=== PATIENT | female | born 1955 | race Caucasian/White ===

== ENCOUNTER → 2016-09-14 | Outpatient (CLI) | payer OTHER ==
[2016-09-14 14:06] LABS: EKG EKG PERFORMED
[2016-09-14 14:22] LABS: Basophils % (A) 1 %; CH 32.4; CHCM 34.6; Eosinophils # (A) 0.1 k/uL (0-0.7); Eosinophils % (A) 2 %; HCT 37.5 % (34.0-46.0); HDW 2.98; HGB 12.3 gm/dL (11.4-16.0); Luc # (Auto) 0.08; Luc % (Auto) 2; Lymphocytes # (A) 1.9 k/uL (1.0-4.8); Lymphocytes % (A) 37 %; MCH 30.9 pg (25.0-35.0); MCHC 32.8 g/dL (31.0-37.0); MCV 94.1 fL (80.0-100.0); Mean Platelet Volume 6.4; Monocytes # (A) 0.3 k/uL (0-1.0); Monocytes % (A) 7 %; Neutrophils # (A) 2.8 k/uL (1.3-7.7); Neutrophils % (A) 52 %; RBC 3.99 m/uL (3.80-5.40); RDW 13.7 % (11.5-15.5); WBC 5.3 k/uL (3.8-10.6); WBC (Perox) 5.36
[2016-09-14 14:32] LABS: ALT 30 U/L (9-52); AST 23 U/L (14-36); Alkaline Phosphatase 86 U/L (38-126); Anion Gap 12 mmol/L; Blood Urea Nitrogen 12 mg/dL (7-17); Calcium 9.1 mg/dL (8.4-10.2); Carbon Dioxide 28 mmol/L (22-30); Chloride 103 mmol/L (98-107); Glucose 94 mg/dL (74-99); Non-African American GFR(MDRD) >60 (>60 ml/min/1.73 sqM); Potassium 4.4 mmol/L (3.5-5.1); Sodium 143 mmol/L (137-145); Total Bilirubin 0.8 mg/dL (0.2-1.3); Total Protein 7.6 g/dL (6.3-8.2)
[2016-09-14 14:39] LABS: Partial Thromboplastin Time 24.8 sec (22.0-30.0); Prothrombin Time 10.3 sec (9.0-12.0)
[2016-09-14 14:48] LABS: Appearance,Urine Clear (Clear); Bilirubin,Urine Negative (Negative); Glucose,Urine (UA) Negative (Negative); Ketones,Urine Negative (Negative); Leukocyte Esterase,Urine Negative (Negative); Nitrite,Urine Negative (Negative); PH, Urine 6.5 (5.0-8.0); Protein,Urine Negative (Negative); Specific Gravity,Urine 1.004 (1.001-1.035); UA Billing (MACRO vs. MICRO) CHEM; Urobilinogen,Urine <2.0 mg/dL (<2.0)
== END | disposition home or self-care (01) ==
LOC: LABPAT 12:42
PROVIDERS: ATTEND Orthopaedic Surgery
DX: Z01.810 Encounter for preprocedural cardiovascular examination (principal); Z01.812 Encounter for preprocedural laboratory examination
CPT/HCPCS: 80053; 81003; 85025; 85610; 85730; 87070; 93005

== ENCOUNTER 2016-09-29 08:20 | Inpatient (IN) | payer OTHER ==
[2016-09-19 14:40] VITALS: BMI 28.6
[~2016-09-29 08:20] MED LIST: ACETAMINOPHEN TAB 500 MG TAB PO ONE; DEXAMETHASONE SOD PHOSPHATE 10 MG/ML 1 ML VIAL IV ONE; HYDROmorphone 1 MG/ML 1 ML SYRINGE IVP PRN; LACTATED RINGERS 1,000 ML IV SCH; MELOXICAM 7.5 MG TAB PO ONE; MIDAZOLAM 2 MG/2 ML VIAL IV PRN; ONDANSETRON 4 MG/2 ML VIAL IVP ONE; SCOPOLAMINE 1.5MG/72HR PATCH TRANSDERM ONE; TRANEXAMIC ACID 1,000 MG in SODIUM CHLORIDE 0.9% 100 ML IVPB ONE; ceFAZolin 2 GM in SODIUM CHLORIDE 0.9% 100 ML IVPB ONE
[2016-09-29] MEDS ORDERED: LIDOCAINE 1% 20 ML VIAL (10MG/ML) FOR IV START INTRADERMA ONE (09:18)
[2016-09-29] MEDS ORDERED: fentaNYL (PF) 50 MCG/ML 2 ML AMP IV ONE (09:37)
[2016-09-29] MEDS ORDERED: CLINDAMYCIN 600 MG in DEXTROSE 5% IN WATER 50 ML IVPB STA ×2 (10:02)
[2016-09-29] MEDS ORDERED: ROPIVACAINE 1,100 MG, SODIUM CHLORIDE 0.9% 330 ML MISCELLANE PRN ×2 (10:05)
--- NOTE | 2016-09-29 10:05 | P.ONQ ---
Anesthesiology Proc Note - PNB - Peripheral Nerve Block Performed Left Adductor Canal Infusion Time Out Performed: Yes Procedure Start Time: 09:35 Procedure Stop Time: 09:50 Indication: Acute Post-Operative Pain, Analgesia Specifically requested for management of pain by DrNaga: Leopoldo Horowitz Sedation Type: Sedate with meaningful contact maintained Preparation: Sterile Dressing Position: Supine Catheter: Indwelling Needle Types: On-Q Needle Size: 100mm (4") Needle Gauge: 18 Technique: Ultrasound Injectate: 0.5% Ropivacaine (see comment for volume) Blood Aspirated: No Pain Paresthesia on Injection Noted: No Resistance on Injection: Normal Events: Uneventful and Well Tolerated
[2016-09-29] MEDS ORDERED: TRANEXAMIC ACID 1,000 MG/10 ML VIAL ONE (10:11)
[2016-09-29] MEDS ORDERED: SODIUM CHLORIDE 0.9% 100 ML BAG ONE (10:11)
[2016-09-29] MEDS ORDERED: MIDAZOLAM 2 MG/2 ML VIAL ONE (10:11)
[2016-09-29] MEDS ORDERED: PROPOFOL 10 MG/ML 20 ML VIAL IV ONE (10:11)
[2016-09-29] MEDS ORDERED: fentaNYL (PF) 50 MCG/ML 2 ML AMP ONE (10:11)
[2016-09-29] MEDS ORDERED: CLINDAMYCIN 1,800 MG in SODIUM CHLORIDE 0.9% IRRIGATIO 3,000 ML IRRIGATION ONE (10:11)
[2016-09-29] MEDS: ROPIVACAINE 246.25 MG, EPINEPHrine 0.5 MG, KETOROLAC 30 MG, cloNIDine HCL/PF 80 MCG, WA... MISCELLANE ONE ×10 (10:36→11:06)
[2016-09-29] MEDS ORDERED: LACTATED RINGERS 1,000 ML IV ONE (11:31)
--- NOTE | 2016-09-29 11:32 | P.OP ---
Date of Procedure: 09/29/16 Preoperative Diagnosis: Severe osteoarthritis left knee Postoperative Diagnosis: Severe osteoarthritis left knee Procedure(s) Performed: Left total knee arthroplasty Implants: Osman and Nephew Oxinium femoral component size 3 Narrow, left Osman & Nephew Tracy II left nonporous tibial baseplate size 1 Osman & Nephew size 9 mm Legion XLPE high flexion insert, size 1-2 Osman & Nephew Tracy II resurfacing patellar component, 26 mm All components were cemented using Ary bone cement.. The articulation is ceramic on polyethylene. Anesthesia: spinal Surgeon: Leopoldo Horowitz Analysis Internship #1: Neeta Pittman Estimated Blood Loss (ml): 50 Pathology: other (Bone and cartilage) Condition: stable Disposition: PACU Indications for Procedure: After failure of conservative treatment we discussed the surgical and nonsurgical treatment options at length. Patient wishes to proceed with a total knee arthroplasty. Complications specific to this procedure were discussed at length, including but not limited to infection, bleeding, stiffness , and nerve injury. Patient is aware of all these complications and informed consent was obtained Operative Findings: The findings are consistent with severe osteoarthritis of the left knee. Description of Procedure: Patient was seen in the preoperative area consent was reviewed and operative site was marked with a skin marker. Patient was then brought to the operating room and given preoperative antibiotics intravenously. A spinal anesthetic was administered by the anesthesia department. A tourniquet was placed on the upper thigh and the lower extremity was prepped and draped in usual sterile fashion. A gram of transexamic acid was given. A universal timeout was then performed which confirmed the patient's name, surgical site, ALLERGIES, and consent. The lower extremity was then exsanguinated and tourniquet was inflated to 250 mmHg. A standard and anterior midline approach to the knee was performed. The skin and subcutaneous tissue was dissected down to the patellar tendon. A medial parapatellar arthrotomy was then performed. The knee was then extended, the patellar was everted, and the knee was again flexed. Anterior horns of both menisci were excised, and a release was performed to the posterior medial aspect of the knee. On gross visual inspection, there was complete loss of articular cartilage in the medial and patellofemoral joint spaces. There was also significant cartilage damage in the lateral compartment. There were multiple periarticular osteophytes which were then removed with a Ronguer. The femoral canal was then opened with the appropriate drill, and the intramedullary femoral cutting guide was then placed and set for 4 of valgus. The distal femoral cutting block was then pinned in place, and the distal femur was then cut. The cutting block was then removed and the cut was checked for flatness. Next, the sizing guide was then placed and set for 3 external rotation based off of the epicondylar axis and Whitesides line. After the femur was sized, the appropriate 4-in-1 cutting block was then pinned in place. The anterior condyles were cut without notching. The posterior and chamfer cuts were performed while protecting the collateral ligaments. The cutting block was then removed, and the femoral canal was plugged with autologous bone. Attention was then directed to the tibia. The remaining ACL was removed with a Ronguer, and the tibia was then gently subluxed forward with a large bent knee retractor. Any remaining menisci was excised. The posterior lateral corner was cauterized in order to cauterize the lateral geniculate artery. The extra medullary tibial cutting guide was then placed, set for the appropriate rotation , slope, and depth of resection. The proximal tibia cutting guide was then pinned in place. Proximal tibia was then cut and sized. Next trials were then placed with the appropriate-sized insert. The knee was able to fully extend and flex to 130 and was stable throughout all range of motion. The knee was then extended, patella everted. Patella was then measured, and then using an osteotomy guide, the patella was cut at the appropriate level. The patella was then measured and drilled and the patella trial was then placed. The knee was then taken through range of motion with the patella trial and the patella tracked normally. The knee was then extended patella trial was then removed and the patella was everted. Knee was then flexed and lug holes were drilled through the femoral trial and the femoral trial was then removed. The tibial was then exposed, and the tibial broach guide was then pinned in place after it was set for the appropriate rotation to allow for the most coverage without overhang. The tibia was then broached. The cut surfaces of bone were then irrigated with pulsatile lavage. The posterior structures were injected with the ropivacaine solution. The knee was also irrigated with Irrisept solution. The components were then opened, the cement was mixed, and the components were then cemented in place. The cement was allowed to harden with the knee in full extension. While the cement was hardening, the remaining soft tissues were injected with the ropivacaine solution. After the cemented hardened. The tourniquet was released, and hemostasis was obtained. A second gram of transexamic acid was given. The knee was again irrigated. The knee was again taken through range of motion and found to be stable throughout all range of motion of 0-130, and the patella tracked normally. The fascia was then closed with #2 strata fix suture. The subcutaneous tissue was closed with 3-0 Vicryl and 3-0 strata fix. Dermabond tape was used for the skin, and the patient was placed in a sterile dressing. Patient was then transferred to recovery room in stable condition. The studio assistant PARK Rendon was required due the complexity surgery and the need for a skilled surgical instrument technician. She assisted in positioning, draping , retraction, and closure of the wound.
[2016-09-29] MEDS ORDERED: NA PHOS,M-B/NA PHOS,DI-BA 133 ML ENEMA RECTAL PRN (11:54)
[2016-09-29] MEDS ORDERED: NALOXONE 0.4 MG/ML 1 ML VIAL IV PRN (11:54)
[2016-09-29] MEDS ORDERED: hydrOXYzine PAMOATE 25 MG CAP PO PRN (11:54)
[2016-09-29] MEDS ORDERED: DIAZEPAM 5 MG TAB PO PRN ×2 (11:54)
[2016-09-29] MEDS ORDERED: HYDROmorphone 1 MG/ML 1 ML SYRINGE IVP PRN ×3 (11:54)
[2016-09-29] MEDS ORDERED: MAGNESIUM HYDROXIDE 2,400 MG/10 ML CUP PO PRN (11:54)
[2016-09-29] MEDS ORDERED: BISACODYL 10 MG SUPP RECTAL PRN (11:54)
[2016-09-29] MEDS ORDERED: ONDANSETRON 4 MG/2 ML VIAL IVP PRN (11:54)
[2016-09-29] MEDS ORDERED: CLINDAMYCIN 900 MG in DEXTROSE 5% IN WATER 50 ML IVPB SCH ×2 (12:00)
--- NOTE | 2016-09-29 12:16 | XR ---
EXAMINATION TYPE: XR knee limited LT DATE OF EXAM ORDERED: 09/29/2016 12:14 PM HISTORY: Postop arthroplasty. COMPARISON: Preoperative study dated 03/07/2016. FINDINGS: A left knee arthroplasty has been performed. Prosthetic elements appear in good position. There is subcutaneous and intra-articular air. IMPRESSION: STATUS POST LEFT ARTHROPLASTY.
[2016-09-29] MEDS ORDERED: traMADol 50 MG TAB PO PRN (15:24)
[2016-09-29] MEDS ORDERED: ACETAMINOPHEN TAB 500 MG TAB PO PRN (15:24)
[2016-09-29] MEDS: traMADol 50 MG TAB PO PRN ×2 (16:46→16:55)
[2016-09-29] MEDS: SODIUM CHLORIDE 0.9% 1,000 ML IV SCH ×2 (16:57→23:34)
[2016-09-29] MEDS: CLINDAMYCIN 900 MG in DEXTROSE 5% IN WATER 50 ML IVPB SCH ×4 (17:53→23:33)
--- NOTE | 2016-09-29 19:11 | CONS ---
DATE OF CONSULTATION: Reason for consult is perioperative complication management and recommendations regarding hyperlipidemia medications. Patient is very pleasant 61-year-old female admitted with left knee arthroplasty, and patient successfully underwent surgery. Patient denied any fever or chills. Patient denied any nausea, vomiting, dysuria. ROS: All other systems were reviewed and were negative. Patient's home medications include: Ketoconazole topical, tramadol, levothyroxine, Zetia, cetirizine, atorvastatin, lorazepam, fluticasone, Flonase and acetaminophen. PAST MEDICAL HISTORY: Significant for hyperlipidemia, osteoarthritis, hypothyroidism, history of interstitial cystitis, orthopedic surgeries in the past. Anxiety, panic disorder. FAMILY HISTORY: Significant for DVT. PHYSICAL EXAMINATION: Temperature 97.7, pulse of 72, respiratory rate of 16, blood pressure is 101/68, saturating at 98% on room air. GENERAL: The patient is alert and oriented x3, not in any acute distress. Well developed, well nourished. HEENT: Pupils are round and equally reacting to light. EOMI. No scleral icterus. No conjunctival pallor. Normocephalic, atraumatic. No pharyngeal erythema. No thyromegaly. CARDIOVASCULAR: S1 and S2 present. No murmurs, rubs, or gallops. PULMONARY: Chest is clear to auscultation, no wheezing or crackles. ABDOMEN: Soft, nontender, nondistended, normoactive bowel sounds. No palpable organomegaly. MUSCULOSKELETAL: Defer to Orthopedic Surgery. EXTREMITIES: No cyanosis, clubbing, or pedal edema. NEUROLOGICAL: Gross neurological examination did not reveal any focal deficits. SKIN: No rashes. LABORATORY DATA: None available. ASSESSMENT AND PLAN: 1. Postoperative day 0 left knee arthroplasty. Pain management and DVT prophylaxis per primary service. 2. Hyperlipidemia. 3. Hypothyroidism. For above-mentioned chronic medical problems, she can continue her home medications. No further recommendations from medical perspective. Will continue to follow the patient on an as-needed basis. Thank you for letting me participate in this patient's care. Patient's primary care physician is Dr. Akash Solano. [facility]
--- NOTE | 2016-09-29 20:43 | XR ---
EXAMINATION TYPE: XR knee complete LT DATE OF EXAM: 09/29/2016 8:39 PM COMPARISON: Today HISTORY: Knee pain after fall TECHNIQUE: 3 views FINDINGS: There is a left knee prosthesis. Components appear in anatomic position. I see no definite fracture. There is mild anterior soft tissue swelling. IMPRESSION: Soft tissue swelling. No fracture. No adverse change compared to exam earlier today.
--- NOTE | 2016-09-29 20:46 | XR ---
EXAMINATION TYPE: XR toes LT DATE OF EXAM: 09/29/2016 8:40 PM COMPARISON: NONE HISTORY: Pain in the fifth digit after a fall TECHNIQUE: 3 views FINDINGS: I see no fracture nor dislocation. The little toe appears intact. IMPRESSION: Negative left little toe exam.
[2016-09-29] MEDS ORDERED: EZETIMIBE 10 MG TAB PO SCH (21:00)
[2016-09-29] MEDS ORDERED: ATORVASTATIN 40 MG TAB PO SCH (21:00)
[2016-09-29] MEDS ORDERED: SENNOSIDES-DOCUSATE SODIUM 1 EACH TAB PO SCH (21:00)
[2016-09-29] MEDS: ASPIRIN 325 MG TAB PO SCH (21:54)
[2016-09-30] MEDS ORDERED: LEVOTHYROXINE 50 MCG TAB PO SCH (06:30)
[2016-09-30 07:13] LABS: Basophils % (A) 0 %; CH 32.4; CHCM 34.3; Eosinophils % (A) 0 %; HCT 32.3 % (34.0-46.0); HDW 2.93; HGB 10.9 gm/dL (11.4-16.0); Luc # (Auto) 0.11; Luc % (Auto) 1; Lymphocytes # (A) 1.5 k/uL (1.0-4.8); Lymphocytes % (A) 17 %; MCH 32.1 pg (25.0-35.0); MCHC 33.8 g/dL (31.0-37.0); Mean Platelet Volume 6.8; Monocytes # (A) 0.6 k/uL (0-1.0); Monocytes % (A) 6 %; Neutrophils # (A) 6.8 k/uL (1.3-7.7); Neutrophils % (A) 76 %; RDW 13.5 % (11.5-15.5); WBC (Perox) 9.38
[2016-09-30] MEDS: ASPIRIN 325 MG TAB PO SCH (08:57)
[2016-09-30] MEDS: SODIUM CHLORIDE 0.9% 1,000 ML IV SCH (08:57)
[2016-09-30] MEDS ORDERED: MELOXICAM 7.5 MG TAB PO SCH (09:00)
--- NOTE | 2016-09-30 09:15 | P.DS ---
Providers Date of admission: 09/29/16 08:20 Expected date of discharge: 09/30/16 Attending physician: Leopoldo Horowitz Consults: 09/29/16 11:54 Consult Physician Routine Consulting Provider: Aldair Howe Consult Reason/Comments: medical managment Do you want consulting provider notified?: Yes Primary care physician: Akash Solano - Discharge Diagnosis(es) (1) Status post left knee replacement Current Visit: Yes Status: Acute (2) Primary localized osteoarthritis of left knee Current Visit: Yes Status: Acute Hospital Course: This is a pleasant 61-year-old female last seen in our office with complaints of left knee pain. Patient has known history of degenerative arthritis of the left knee and presented to discuss options. After discussion and consideration , the patient elected to proceed with a left total knee arthroplasty. Patient was seen preoperatively, and medically cleared for surgery by her primary care physician. Patient was admitted to [facility] and underwent left total knee arthroplasty with Dr. Leopoldo Horowitz. The procedure was performed without complications or sequelae. The patient is seen and evaluated at bedside today. Pain is well-controlled. She did have a fall in the bathroom yesterday and x- rays were obtained which were negative. Patient currently denies any pain and has been up ambulating since that time. Patient has no new complaints today and denies any fevers, chills, nausea, vomiting, or shortness of breath. Vital signs are stable. Dressing is clean dry and intact. Incision looks fine with no erythema or active drainage. Calf is soft and nontender. Patient has full foot and ankle motion without difficulty. Patient's left lower extremity is neurovascularly intact. The patient is orthopedically stable for discharge today. Pertinent Studies: Laboratory Tests 09/30/16 06:40 WBC 9.0 RBC 3.40 L Hgb 10.9 L Hct 32.3 L MCV 95.0 MCH 32.1 MCHC 33.8 Patient Condition at Discharge: Good Plan - Discharge Summary New Discharge Prescriptions: Aspirin 325 mg PO BID #60 tab Sennosides-Docusate Sodium [Senokot-S] 2 tab PO DAILY #60 tablet traMADol HCL [Ultram] 50 mg PO Q4-6H PRN #60 tab PRN Reason: Pain Discharge Medication List Acetaminophen Tab [Tylenol Tab] 500 mg PO Q6H PRN 09/19/16 [History] Atorvastatin [Lipitor] 40 mg PO HS 09/19/16 [History] Cetirizine HCl [Zyrtec] 10 mg PO HS 09/19/16 [History] Ezetimibe [Zetia] 10 mg PO HS 09/19/16 [History] Fluticasone Nasal Doerun [Flonase Nasal Doerun] 2 spr EA NOSTRIL DAILY 09/19/16 [ History] Ketoconazole 2% Cream [Nizoral 2%] 1 applic TOPICAL DAILY PRN 09/19/16 [History] LORazepam [Ativan] 0.5 mg PO DAILY PRN 09/19/16 [History] Levothyroxine Sodium [Synthroid] 50 mcg PO DAILY 09/19/16 [History] traMADol HCl [Ultram] 50 mg PO Q6H PRN 09/19/16 [History] Aspirin 325 mg PO BID #60 tab 09/30/16 [Rx] Sennosides-Docusate Sodium [Senokot-S] 2 tab PO DAILY #60 tablet 09/30/16 [Rx] traMADol HCL [Ultram] 50 mg PO Q4-6H PRN #60 tab 09/30/16 [Rx] Follow up Appointment(s)/Referral(s): Leopoldo Horowitz DO [Doctor of Osteopathic Medicine] - 2 Weeks Ambulatory/Diagnostic Orders: Continuous Passive Motion (CPM) Machine [DME.AMB1] Location: Determined By Patient Activity/Diet/Wound Care/Special Instructions: Weightbearing as tolerated with a walker CPM daily Daily dressing changes, keep incision clean and dry [facility] with questions or concerns [phone] Discharge Disposition: HOME WITH HOME HEALTH SERVICES
--- NOTE | 2016-09-30 09:17 | P.PN ---
Progress Note - Text This is a 61-year-old lady status post knee replacement postop day #1. The patient has adequate canal catheter placement for postoperative pain control. When I saw the patient she was sitting in the bedside chair, she denies any pain at this point.
[2016-09-30 14:34] VITALS: BP 114/58; PULSE 80; RESP 16; TEMP 98.3
== END 2016-09-30 17:24 | disposition home health service (06) | DRG 470 ==
LOC: 2ORMAIN 08:20 → 3SUR 12:03
PROVIDERS: ADMIT Orthopaedic Surgery; ATTEND Orthopaedic Surgery
PROC: 0SRD0J9 Replacement of Left Knee Joint with Synthetic Substitute, Cemented, Open Approach (ICD-10-PCS; principal; 2016-09-29 10:25)
DX: M17.0 Bilateral primary osteoarthritis of knee (principal); M06.9 Rheumatoid arthritis, unspecified; E03.9 Hypothyroidism, unspecified; E78.5 Hyperlipidemia, unspecified; F41.0 Panic disorder [episodic paroxysmal anxiety]; F41.9 Anxiety disorder, unspecified; Z79.899 Other long term (current) drug therapy; Z88.5 Allergy status to narcotic agent; Z88.0 Allergy status to penicillin; Z82.49 Family history of ischemic heart disease and other diseases of the circulatory system
CPT/HCPCS: 85025; 88300

== ENCOUNTER → 2016-12-13 | Outpatient (CLI) | payer OTHER ==
--- NOTE | 2016-12-15 12:06 | MM ---
Reason for exam: screening (asymptomatic). Last mammogram was performed 1 year and 2 months ago. History: Patient is postmenopausal. Physical Findings: A clinical breast exam by your physician is recommended on an annual basis and results should be correlated with mammographic findings. MG Screening Mammo w CAD Bilateral CC and MLO view(s) were taken. Prior study comparison: October 11, 2015, bilateral MG screening mammo w CAD. October 07, 2014, bilateral MG screening mammo w CAD. October 03, 2013, bilateral digital screening mammo w/CAD. There are scattered fibroglandular densities. No significant changes when compared with prior studies. ASSESSMENT: Negative, BI-RAD 1 RECOMMENDATION: Routine screening mammogram in 1 year.
== END | disposition home or self-care (01) ==
LOC: RADMAMWWP 11:17
PROVIDERS: ATTEND Pediatrics
DX: Z12.31 Encounter for screening mammogram for malignant neoplasm of breast (principal)

== ENCOUNTER → 2017-03-16 | Outpatient (CLI) | payer OTHER ==
[2017-03-16 09:35] LABS: Basophils % (A) 1 %; CH 31.8; CHCM 34.3; Eosinophils # (A) 0.1 k/uL (0-0.7); Eosinophils % (A) 1 %; HCT 38.9 % (34.0-46.0); HDW 2.98; HGB 13.1 gm/dL (11.4-16.0); Luc # (Auto) 0.06; Luc % (Auto) 2; Lymphocytes # (A) 1.3 k/uL (1.0-4.8); Lymphocytes % (A) 33 %; MCH 31.5 pg (25.0-35.0); MCHC 33.8 g/dL (31.0-37.0); MCV 93.3 fL (80.0-100.0); Mean Platelet Volume 6.4; Monocytes # (A) 0.3 k/uL (0-1.0); Monocytes % (A) 8 %; Neutrophils # (A) 2.1 k/uL (1.3-7.7); Neutrophils % (A) 56 %; RBC 4.17 m/uL (3.80-5.40); RDW 13.9 % (11.5-15.5); WBC 3.7 k/uL (3.8-10.6); WBC (Perox) 3.85
[2017-03-16 12:33] LABS: Erythrocyte Sedimentation Rate 36 mm/hr (0-20)
== END | disposition home or self-care (01) ==
LOC: LABWHC1 08:35
PROVIDERS: ATTEND Orthopaedic Surgery
DX: Z09 Encounter for follow-up examination after completed treatment for conditions other than malignant neoplasm (principal); M24.60 Ankylosis, unspecified joint; Z96.652 Presence of left artificial knee joint
CPT/HCPCS: 36415; 85025; 85652; 86140

== ENCOUNTER → 2021-03-10 | Outpatient (CLI) | payer OTHER ==
[2021-03-10 14:44] LABS: Basophils # (A) 0.04 X 10*3/uL (0.00-0.10); Basophils % (A) 0.6 %; Eosinophils # (A) 0.15 X 10*3/uL (0.04-0.35); Eosinophils % (A) 2.4 %; HCT 35.9 % (37.2-46.3); HGB 11.6 g/dL (12.0-15.0); Lymphocytes # (A) 2.85 X 10*3/uL (0.90-5.00); Lymphocytes % (A) 45.2 %; MCH 30.9 pg (27.0-32.0); MCHC 32.3 g/dL (32.0-37.0); MCV 95.5 fL (80.0-97.0); Mean Platelet Volume 10.3 fL (9.5-12.2); Monocytes # (A) 0.65 X 10*3/uL (0.20-1.00); Monocytes % (A) 10.3 %; Neutrophils # (A) 2.59 X 10*3/uL (1.80-7.70); Neutrophils % (A) 41.2 %; Platelet Count 209 X 10*3/uL (140-440); RBC 3.76 X 10*6/uL (4.10-5.20); RDW 13.2 % (11.5-14.5)
[2021-03-10 19:53] LABS: Erythrocyte Sedimentation Rate 22 mm/Hr (0-30)
== END | disposition home or self-care (01) ==
LOC: LABWHC1 10:36
PROVIDERS: ATTEND Physician Assistant
DX: Z09 Encounter for follow-up examination after completed treatment for conditions other than malignant neoplasm (principal); M25.662 Stiffness of left knee, not elsewhere classified; M25.562 Pain in left knee; Z96.662 Presence of left artificial ankle joint
CPT/HCPCS: 36415; 85025; 85652; 86140

== ENCOUNTER → 2021-07-04 | Outpatient (CLI) | payer OTHER ==
[2021-07-04 11:25] LABS: Basophils % (A) 1 %; Eosinophils # (A) 0.1 k/uL (0-0.7); Eosinophils % (A) 2 %; HGB 12.2 gm/dL (11.4-16.0); Lymphocytes # (A) 1.2 k/uL (1.0-4.8); Lymphocytes % (A) 25 %; MCH 32.1 pg (25.0-35.0); MCHC 34.9 g/dL (31.0-37.0); Mean Platelet Volume 6.8; Monocytes # (A) 0.3 k/uL (0-1.0); Monocytes % (A) 6 %; Neutrophils # (A) 3.2 k/uL (1.3-7.7); Neutrophils % (A) 65 %; Platelet Count 282 k/uL (150-450); RBC 3.81 m/uL (3.80-5.40); RDW 13.2 % (11.5-15.5); WBC 4.9 k/uL (3.8-10.6)
[2021-07-04 11:45] LABS: ALT 12 U/L (4-34); AST 23 U/L (14-36); African American GFR (CKD) >90 (>60 ml/min/1.73 sqM); Albumin 4.4 g/dL (3.5-5.0); Alkaline Phosphatase 94 U/L (38-126); Anion Gap 8 mmol/L; Blood Urea Nitrogen 16 mg/dL (7-17); Calcium 9.3 mg/dL (8.4-10.2); Carbon Dioxide 28 mmol/L (22-30); Chloride 100 mmol/L (98-107); Glucose 99 mg/dL (74-99); Non-African American GFR(CKD) >90 (>60 ml/min/1.73 sqM); Potassium 4.2 mmol/L (3.5-5.1); Sodium 136 mmol/L (137-145); Total Bilirubin 0.6 mg/dL (0.2-1.3); Total Protein 7.7 g/dL (6.3-8.2)
[2021-07-04 11:50] LABS: Prothrombin Time 10.3 sec (9.0-12.0)
[2021-07-04 11:58] LABS: Appearance,Urine Clear (Clear); Bilirubin,Urine Negative (Negative); Blood,Urine Trace (Negative); Color,Urine Yellow; Glucose,Urine (UA) Negative (Negative); Ketones,Urine Negative (Negative); Leukocyte Esterase,Urine Negative (Negative); Mucus,Urine Rare /hpf; Nitrite,Urine Negative (Negative); Protein,Urine Negative (Negative); RBC,Urine 2 /hpf (0-5); Specific Gravity,Urine 1.025 (1.001-1.035); Squamous Epithelial Cell,Urine 3 /hpf (0-4); Urobilinogen,Urine <2.0 mg/dL (<2.0); WBC,Urine 2 /hpf (0-5)
== END | disposition home or self-care (01) ==
LOC: LABPAT 09:15
PROVIDERS: ATTEND Orthopaedic Surgery
DX: Z01.812 Encounter for preprocedural laboratory examination (principal); E03.9 Hypothyroidism, unspecified; R73.9 Hyperglycemia, unspecified
CPT/HCPCS: 80053; 81001; 83036; 84443; 85025; 85610; 85730; 87070; 93005

== ENCOUNTER 2021-07-25 07:33 | Day surgery (SDC) | payer OTHER ==
[2021-07-13 10:56] VITALS: BMI 25.4
[~2021-07-25 07:33] MED LIST changes: -ACETAMINOPHEN TAB 500 MG TAB PO ONE; +ACETAMINOPHEN TAB 500 MG TAB PO PRN; -DEXAMETHASONE SOD PHOSPHATE 10 MG/ML 1 ML VIAL IV ONE; +GABAPENTIN 300 MG CAP PO PRN; -HYDROmorphone 1 MG/ML 1 ML SYRINGE IVP PRN; -LACTATED RINGERS 1,000 ML IV SCH; -MELOXICAM 7.5 MG TAB PO ONE; +MELOXICAM 7.5 MG TAB PO PRN; -MIDAZOLAM 2 MG/2 ML VIAL IV PRN; -ONDANSETRON 4 MG/2 ML VIAL IVP ONE; -SCOPOLAMINE 1.5MG/72HR PATCH TRANSDERM ONE; -TRANEXAMIC ACID 1,000 MG in SODIUM CHLORIDE 0.9% 100 ML IVPB ONE; +TRANEXAMIC ACID 1,000 MG in SODIUM CHLORIDE 0.9% 100 ML IVPB PRN; -ceFAZolin 2 GM in SODIUM CHLORIDE 0.9% 100 ML IVPB ONE
[2021-07-25] MEDS ORDERED: ONDANSETRON 4 MG/2 ML VIAL ONE (07:50)
[2021-07-25] MEDS: LACTATED RINGERS 1,000 ML IV SCH ×2 (08:21→18:10)
[2021-07-25] MEDS ORDERED: MIDAZOLAM 2 MG/2 ML VIAL IVP ONE (08:42)
[2021-07-25] MEDS ORDERED: .fentaNYL (PF) 50 MCG/ML 2 ML AMP IVP ONE (08:42)
[2021-07-25] MEDS ORDERED: HYDROmorphone 0.2 MG/1 ML SYRINGE IVP PRN (09:04)
[2021-07-25] MEDS ORDERED: MAGNESIUM HYDROXIDE 2,400 MG/10 ML CUP PO PRN (09:04)
[2021-07-25] MEDS ORDERED: HYDROmorphone 1 MG/ML 1 ML SYRINGE IVP PRN (09:04)
[2021-07-25] MEDS ORDERED: ONDANSETRON 4 MG/2 ML VIAL IVP PRN (09:04)
[2021-07-25] MEDS ORDERED: bisacodyL 10 MG SUPP RECTAL PRN (09:04)
[2021-07-25] MEDS ORDERED: NA PHOS,M-B/NA PHOS,DI-BA 133 ML ENEMA RECTAL PRN (09:04)
[2021-07-25] MEDS ORDERED: NALOXONE 0.4 MG/ML 1 ML VIAL IV PRN (09:04)
[2021-07-25] MEDS ORDERED: HYDROcodone/APAP 7.5-325MG 1 EACH TAB PO PRN ×2 (09:06)
[2021-07-25] MEDS ORDERED: SODIUM CHLORIDE 0.9% 100 ML BAG ONE (09:21)
[2021-07-25] MEDS ORDERED: MIDAZOLAM 2 MG/2 ML VIAL ONE (09:21)
[2021-07-25] MEDS ORDERED: PROPOFOL 10 MG/ML 20 ML VIAL IV ONE (09:21)
[2021-07-25] MEDS ORDERED: diphenhydrAMINE 50 MG/ML 1 ML VIAL ONE (09:21)
[2021-07-25] MEDS ORDERED: KETAMINE 10 MG/ML 20 ML VIAL ONE (09:21)
[2021-07-25] MEDS ORDERED: TRANEXAMIC ACID 1,000 MG/10 ML VIAL ONE (09:21)
[2021-07-25] MEDS ORDERED: ROPIVACAINE 5 MG/ML 30 ML VIAL ONE (09:21)
[2021-07-25] MEDS ORDERED: .fentaNYL (PF) 50 MCG/ML 2 ML AMP ONE (09:21)
[2021-07-25] MEDS ORDERED: ceFAZolin 1,000 MG in SODIUM CHLORIDE 0.9% 1,000 ML IRRIGATION ONE (09:23)
[2021-07-25] MEDS ORDERED: ROPIVACAINE 0.2%-NS ON-Q PUMP 1,090 MG, EMPTY PAIN BALL 1 EACH MISCELLANE PRN (10:09)
--- NOTE | 2021-07-25 10:11 | P.ANPRN ---
Procedure Note - Anesthesia - Nerve Block Performed Left Adductor Canal Time Out Performed: Yes (08:42) Date of Procedure: 07/25/21 Procedure Start Time: :42 Procedure Stop Time: 08:54 Location of Patient: PreOp Indication: Acute Post-Operative Pain, Requested by Surgeon (Dr Leopoldo Horowitz) Sedation Type: Sedate with meaningful contact maintained Preparation: Sterile Prep, Sterile Dressing Position: Supine Catheter: Indwelling Needle Types: Pajunk Needle Gauge: 21 Ultrasound used to visualize needle placement: Yes Ultrasound used to observe medication spread: Yes Injectate: 0.5% Ropivacaine (see comment for volume) (15cc) Blood Aspirated: No Pain Paresthesia on Injection Noted: No Resistance on Injection: Normal Image Stored and Saved: Yes Events: Uneventful and Well Tolerated
--- NOTE | 2021-07-25 10:12 | P.ANPRN ---
Procedure Note - Anesthesia - Nerve Block Performed Left iPack Time Out Performed: Yes Date of Procedure: 07/25/21 Procedure Start Time: 08:55 Procedure Stop Time: 09:02 Location of Patient: PreOp Indication: Acute Post-Operative Pain, Requested by Surgeon (Dr Leopoldo Horowitz) Sedation Type: Sedate with meaningful contact maintained Preparation: Sterile Prep Position: Supine Catheter: None Needle Types: Pajunk Needle Gauge: 21 Ultrasound used to visualize needle placement: Yes Ultrasound used to observe medication spread: Yes Injectate: 0.5% Ropivacaine (see comment for volume) (15cc) Blood Aspirated: No Pain Paresthesia on Injection Noted: No Resistance on Injection: Normal Image Stored and Saved: Yes Events: Uneventful and Well Tolerated
--- NOTE | 2021-07-25 11:32 | P.OP ---
Date of Procedure: 07/25/21 Preoperative Diagnosis: Failed left total knee arthroplasty Postoperative Diagnosis: Failed left total knee arthroplasty Procedure(s) Performed: Revision left total knee arthroplasty Implants: Osman and Nephew Legion Oxinium constrained femoral component size 2, left Osman and Nephew Legion press-fit stem, straight 13 mm x 120 mm Osman & Nephew Tracy II constrained articular insert size 1-2, 9 mm Osman & Nephew Tracy II component, 29 mm All components were cemented using Palacos R bone cement.. The articulation is Oxinium on polyethylene. Anesthesia: spinal Surgeon: Leopoldo Horowitz Rough Rounder Machine #1: Ella Lechuga Estimated Blood Loss (ml): 50 Pathology: other (Cultures 2) Condition: stable Disposition: PACU Indications for Procedure: This is a 66-year-old female that had a total knee arthroplasty performed in 2017. She subsequently developed significant pain and arthrofibrosis and presents now for revision of her left total knee arthroplasty. Informed consent was obtained. Operative Findings: The operative findings are consistent with significant arthrofibrosis and a loose patellar component. Description of Procedure: Patient was seen in the preoperative area consent was reviewed and operative site was marked with a skin marker. An adductor canal pain catheter was placed by anesthesia in the preoperative area as well as an iPACK block. Patient was then brought to the operating room and given preoperative antibiotics intravenously. A spinal anesthetic was administered by the anesthesia department. A tourniquet was placed on the upper thigh and the lower extremity was prepped and draped in usual sterile fashion. A gram of transexamic acid was given. A universal timeout was then performed which confirmed the patient's name, surgical site, ALLERGIES, and consent. The lower extremity was then exsanguinated and tourniquet was inflated to 250 mmHg. A standard and anterior midline approach to the knee was performed. The skin and subcutaneous tissue was dissected down to the patellar tendon. A medial parapatellar arthrotomy was then performed. The knee was then extended, the patellar was everted, and the knee was again flexed. The knee was then cultured 2. There is found to be a large amount of bony exostosis around the patellar component, and the patella was grossly loose. The femoral and tibial components were evaluated and found to be well fixed. Using a small oscillating saw, the cement implant interface was disrupted and the femoral componentswere then removed without difficulty. Next, sequential reaming of the femoral canal was then performed by hand. The femur was then sized and the distal cutting block was then placed in the distal femur was then freshened with a cut. Next the 4-in-1 cutting block was then placed, and set for the appropriate rotation. Anterior posterior chamfer cuts were then performed as well as anterior posterior cuts. The trial femur was then placed with appropriate length stem. Next the box cutting guide was placed in the bone for the box was then reamed and removed. Femoral trial was then removed. Attention was then directed to the tibia. The tibial component was evaluated and found to be well fixed. The tibial component was left in place. The femoral trial was then placed as well. Next, the insert trials were then sequentially used until the appropriate-sized insert was reached. Knee was able to fully extend and flex to 100 and was stable to varus and valgus and anterior posterior stresses throughout all range of motion. Trials were then removed. The patella was everted with the aid of towel clips and a saw was used to freshen up the patellar cut. Patella was then reamed and drilled and the patella trial was then placed. Patella trial tracked well. It was removed. The cut surfaces of bone were then irrigated with pulsatile lavage. The knee was also irrigated with Irrisept solution. The components were then opened, the cement was mixed, and the components were then cemented in place. The cement was allowed to harden with the knee in full extension. The tourniquet was released, and hemostasis was obtained. A second gram of transexamic acid was given. The knee was again irrigated. After the cemented hardened, The knee was again taken through range of motion and found to be stable throughout all range of motion of 0-100, and the patella tracked normally. The fascia was then closed with #2 strata fix suture. The subcutaneous tissue was closed with 3-0 Vicryl and 3-0 strata fix. Dermabond glue was used for the skin and placed with the knee in flexion. The patient was placed in a sterile silver dressing. Patient was then transferred to recovery room in stable condition. The surgical first assistant PARK Dhillon was required due the complexity surgery and the need for a skilled neurosurgical nurse practitioner. She assisted in positioning, draping, retraction, and closure of the wound.
[2021-07-25] MEDS ORDERED: LACTATED RINGERS 1,000 ML IV ONE (11:54)
[2021-07-25] MEDS: HYDROmorphone 0.5 MG/0.5 ML SYRINGE IVP PRN ×2 (12:05→13:54)
--- NOTE | 2021-07-25 12:37 | XR ---
EXAMINATION TYPE: XR knee limited LT DATE OF EXAM: 07/25/2021 CLINICAL HISTORY: Left knee pain and arthritis status post total knee replacement. TECHNIQUE: Portable AP and crosstable lateral views of the left knee are obtained immediately postop eratively. COMPARISON: Left knee x-ray August 11, 2017 FINDINGS: Negative osseous structures are demineralized. Metallic hardware from total left knee long stem arthroplasty is seen and appears satisfactory in alignment and position. There is evidence of recent surgery with diffuse subcutaneous gas and soft tissue swelling noted. There are punctate densi ties in the soft tissue anterior superior level, suspect metallosis from prior removed hardware. IMPRESSION: METALLIC HARDWARE FROM TOTAL LEFT KNEE ARTHROPLASTY IS SATISFACTORY IN ALIGNMENT.
[2021-07-25 12:55] VITALS: RESP 16
[2021-07-25] MEDS ORDERED: ONDANSETRON 4 MG/2 ML VIAL IVP ONE (15:35)
[2021-07-25] MEDS: SODIUM CHLORIDE 0.9% 1,000 ML IV SCH (16:46)
[2021-07-25] MEDS ORDERED: LORazepam 0.5 MG TAB PO PRN (17:41)
--- NOTE | 2021-07-25 18:03 | P.CONS ---
History of Present Illness - Reason for Consult Consult date: 07/25/21 Medical management Requesting physician: Leopoldo Horowitz - Chief Complaint Left knee pain - History of Present Illness This is a very pleasant 66-year-old patient who follows with Dr. Solano. Patient had a prior left total knee arthroplasty. Started having more symptoms with pain with ambulation. Failed conservative management. Has been using a walker. In today's admin: Left total knee arthroplasty. Postprocedure having some nausea. A bit tired. No chest pain or shortness of breath. Hypothyroid, anxiety disorder, hyperlipidemia, seasonal ALLERGIES, interstitial cystitis. Review of systems: GEN.: Tired EYES: None HEENT: None NECK: None RESPIRATORY: None CARDIOVASCULAR: None GASTROINTESTINAL: [Nausea, vomited 1 GENITOURINARY: None MUSCULOSKELETAL: Joint pains LYMPHATICS: None HEMATOLOGICAL: None PSYCHIATRY: None NEUROLOGICAL: Does use a cane Past medical history to include: Hyperlipidemia, osteoarthritis, hypothyroid, interstitial cystitis, anxiety disorder, seasonal ALLERGIES Social history: Does not smoke or drink alcohol. Son lives with her. Does use a cane Family history: DVT Physical examination: VITAL SIGNS: Afebrile, 74, 16, 118/75, 100% room air GENERAL: BMI 25.6, reclining in bed, awake out in distress. EYES: Pupils equal. Conjunctiva normal. HEENT: External appearance of nose and ears normal, oral cavity grossly normal. NECK: JVD not raised; masses not palpable. HEART: First and second heart sounds are normal; no edema. LUNGS: Respiratory rate normal; clear to auscultation. ABDOMEN: Soft, nontender, liver spleen not palpable, no masses palpable. PSYCH: [Alert and oriented x3; mood and affect slightly anxious l. MUSCULAR skeletal: Evidence of OA. Dressing over the left knee NEUROLOGICAL: Cranial nerves grossly intact; no facial asymmetry, power and sensation grossly intact. LYMPHATICS: No lymph nodes palpable in the axilla and neck INVESTIGATIONS, reviewed in the clinical context: Coronavirus [PCR]: Not detected [July 04] White count 4.9 hemoglobin 12.2 platelets 282 sodium 136 potassium 4.2 creatinine 0.61 TSH 6.2 Assessment and plan: -Left total knee arthroplasty/revision Aspirin 325 mg by mouth twice a day for DVT prophylaxis. [place] for pain control -Anxiety disorder not otherwise specified Ativan 0.5 mg daily when necessary -Hypothyroid Synthroid 88 g a day -Hyperlipidemia As indicated 10 mg daily at bedtime -Seasonal ALLERGIES Zyrtec 10 mg daily at bedtime -Acute nausea vomiting likely secondary to anesthesia Zofran when necessary Care was discussed with the patient. Questions answered. Zofran for nausea vomiting. Aspirin for DVT prophylaxis. Activity per orthopedics. Thank you Dr. Horowitz Past Medical History Past Medical History: Hyperlipidemia, Osteoarthritis (OA), Thyroid Disorder Additional Past Medical History / Comment(s): HX OF ANEMIA, INTERSTITIAL CYSTITIS. History of Any Multi-Drug Resistant Organisms: None Reported Past Surgical History: Orthopedic Surgery Additional Past Surgical History / Comment(s): LEFT KNEE ARTHROSCOPY X4, LEFT SHOULDER SURGERY. total left knee september 2016 Past Anesthesia/Blood Transfusion Reactions: Postoperative Nausea & Vomiting (PONV) Smoking Status: Never smoker - Past Family History Brother(s) Family Medical History: Deep Vein Thrombosis (DVT) Father Family Medical History: Cancer Medications and Allergies Home Medications Medication Instructions Recorded Confirmed Type Acetaminophen Tab [Tylenol Tab] 500 mg PO Q6H PRN 09/19/16 07/25/21 History Cetirizine HCl [Zyrtec] 10 mg PO HS 09/19/16 07/25/21 History Ezetimibe [Zetia] 10 mg PO HS 09/19/16 07/25/21 History Fluticasone Nasal [place] [Flonase 2 spr EA NOSTRIL DAILY 09/19/16 07/25/21 History Nasal [place]] LORazepam [Ativan] 0.5 mg PO DAILY PRN 09/19/16 07/25/21 History Levothyroxine Sodium [Synthroid] 88 mcg PO QAM 08/11/17 07/25/21 History traMADol HCl [Ultram] 50 mg PO Q6H PRN #90 tab 08/14/17 07/25/21 Rx Diclofenac Sodium Gel [Voltaren 2 gm TOPICAL QID PRN 07/13/21 07/25/21 History Gel] Olopatadine HCl 1 applic BOTH EYES QAM 07/13/21 07/25/21 History Aspirin 325 mg PO BID #60 tab 07/25/21 Rx HYDROcodone/APAP 7.5-325MG [[place] 1 - 2 tab PO Q6H PRN #32 tab 07/25/21 Rx 7.5-325] Ondansetron Odt [Zofran Odt] 1 tab PO Q8HR PRN #10 tab 07/25/21 Rx Sennosides [Senokot] 2 tab PO DAILY PRN #60 tablet 07/25/21 Rx Allergies Allergy/AdvReac Type Severity Reaction Status Date / Time Penicillins Allergy Unknown Rash/Hives Verified 07/25/21 08:02 codeine Allergy Rash/Hives Verified 07/25/21 08:02 prednisone Allergy facial Verified 07/25/21 08:02 swelling adhesive tape AdvReac Unknown Itching Verified 07/25/21 08:02 ibuprofen AdvReac Unknown Stomach Verified 07/25/21 08:02 discomfort multivitamin AdvReac Unknown Stomach Uncoded 07/25/21 08:02 discomfort Physical Exam Vitals: Vital Signs Temp Pulse Pulse Pulse Resp BP BP 07/25/21 16:35 74 16 118/75 07/25/21 15:00 56 L 16 124/76 07/25/21 14:15 51 L 16 123/73 07/25/21 13:45 53 L 16 133/63 07/25/21 13:15 64 16 149/79 07/25/21 13:00 68 16 133/79 07/25/21 12:45 72 16 129/83 07/25/21 12:30 65 17 127/80 07/25/21 12:10 65 16 182/74 07/25/21 11:55 67 16 136/67 07/25/21 11:40 64 16 154/67 07/25/21 11:26 98.0 F 70 122/83 07/25/21 09:11 66 18 149/76 07/25/21 08:08 98.1 F 77 18 147/79 Pulse Ox 07/25/21 16:35 100 07/25/21 15:00 100 07/25/21 14:15 95 07/25/21 13:45 98 07/25/21 13:15 99 07/25/21 13:00 99 07/25/21 12:45 99 07/25/21 12:30 100 07/25/21 12:10 99 07/25/21 11:55 100 07/25/21 11:40 100 07/25/21 11:26 100 07/25/21 09:11 99 07/25/21 08:08 99 Intake and Output 07/25/21 07/25/21 07/25/21 06:59 14:59 22:59 Intake Total 601 Output Total 150 300 Balance 451 -300 Intake: IV 601 Output: Urine 100 300 Estimated Blood Loss 50 Other: Weight 57.6 kg
[2021-07-25] MEDS: ASPIRIN 325 MG TAB PO SCH (19:53)
[2021-07-25] MEDS ORDERED: EZETIMIBE 10 MG TAB PO SCH (21:00)
[2021-07-25] MEDS ORDERED: LORATADINE 10 MG TAB PO SCH (21:00)
[2021-07-25] MEDS ORDERED: SENNOSIDES-DOCUSATE SODIUM 1 EACH TAB PO SCH (21:00)
[2021-07-26] MEDS: HYDROmorphone 0.5 MG/0.5 ML SYRINGE IVP PRN ×2 (00:14→06:19)
[2021-07-26] MEDS: SODIUM CHLORIDE 0.9% 1,000 ML IV SCH (00:17)
[2021-07-26 05:40] LABS: Basophils % (A) 0 %; Eosinophils % (A) 0 %; HGB 10.6 gm/dL (11.4-16.0); Lymphocytes # (A) 0.7 k/uL (1.0-4.8); Lymphocytes % (A) 11 %; MCH 32.2 pg (25.0-35.0); MCHC 35.3 g/dL (31.0-37.0); MCV 91.2 fL (80.0-100.0); Mean Platelet Volume 7.3; Monocytes # (A) 0.6 k/uL (0-1.0); Monocytes % (A) 9 %; Neutrophils # (A) 5.3 k/uL (1.3-7.7); Neutrophils % (A) 79 %; Platelet Count 189 k/uL (150-450); WBC 6.7 k/uL (3.8-10.6)
[2021-07-26 05:47] VITALS: BP 112/65; PULSE 70; TEMP 98.8
[2021-07-26] MEDS ORDERED: LEVOTHYROXINE 88 MCG TAB PO SCH (06:30)
--- NOTE | 2021-07-26 07:09 | P.PN ---
Progress Note - Text The patient is status post left adductor canal catheter placement. The catheter was placed for postoperative pain control, status post total left knee arthroplasty. Ropivacaine 0.2% is infusing at[8 ] mLs per hour. The patient has no complaints of[ left] lower extremity numbness or weakness. The patient did incur some nausea yesterday which is now subsiding. Patient's VAS score is 1-2-10. Assessment: Patient's adductor canal catheter is in place and working appropriately. Plan: continue infusion and adjust it as needed.
[2021-07-26] MEDS: ASPIRIN 325 MG TAB PO SCH (07:23)
[2021-07-26] MEDS ORDERED: FLUTICASONE 50MCG/SPRAY NASAL 16GM EA NOSTRIL SCH (09:00)
[2021-07-26] MEDS ORDERED: KETOTIFEN 0.025% OPHTH DROPS 5 ML BTL BOTH EYES SCH (09:00)
--- NOTE | 2021-07-26 09:03 | P.DS ---
Providers Expected date of discharge: 07/26/21 Attending physician: Leopoldo Horowitz Consults: 07/25/21 17:02 Consult Physician Routine Consulting Provider: John Paul Barber Consult Reason/Comments: medical management Do you want consulting provider notified?: Yes Primary care physician: Ella Lechuga, PAC - Discharge Diagnosis(es) (1) Status post revision of total replacement of left knee Current Visit: Yes Status: Acute Hospital Course: This is a 66-year-old female with known history of left total knee arthroplasty. The patient presented for evaluation as an outpatient due to increased pain. After discussion and consideration patient elects to proceed with revision left total knee arthroplasty. The patient is seen preoperatively by Dr. Horowitz and medically cleared for surgery by their primary care physician. Patient is admitted to [facility] on 07/25/2021 for revision left total knee arthroplasty. The procedure is performed without complication or sequelae. The patient is doing well postoperatively. Labs and vital signs are stable on day of discharge. On day of discharge patient's knee incision is healing well. There is minimal erythema. There is no drainage noted at this time. There is minimal soft tissue swelling to the knee. Patient has full foot and ankle motion without d ifficulty or pain. Calf is soft and nontender to palpation. Neurovascular status to the left lower extremity is intact. Patient is discharged home in good condition. Opioid start talking form is reviewed and signed. Please see med rec for accurate list of home medications. Plan - Discharge Summary Discharge Rx Participant: No New Discharge Prescriptions: New Aspirin 325 mg PO BID #60 tab HYDROcodone/APAP 7.5-325MG [[place] 7.5-325] 1 - 2 tab PO Q6H PRN #32 tab PRN Reason: Pain Sennosides [Senokot] 2 tab PO DAILY PRN #60 tablet PRN Reason: Constipation Ondansetron Odt [Zofran Odt] 1 tab PO Q8HR PRN #10 tab PRN Reason: Nausea No Action Fluticasone Nasal [place] [Flonase Nasal [place]] 2 spr EA NOSTRIL DAILY Acetaminophen Tab [Tylenol Tab] 500 mg PO Q6H PRN PRN Reason: Pain Ezetimibe [Zetia] 10 mg PO HS Cetirizine HCl [Zyrtec] 10 mg PO HS LORazepam [Ativan] 0.5 mg PO DAILY PRN PRN Reason: Anxiety Levothyroxine Sodium [Synthroid] 88 mcg PO QAM traMADol HCl [Ultram] 50 mg PO Q6H PRN #90 tab PRN Reason: Pain Diclofenac Sodium Gel [Voltaren Gel] 2 gm TOPICAL QID PRN PRN Reason: Pain Olopatadine HCl 1 applic BOTH EYES QAM Discharge Medication List Acetaminophen Tab [Tylenol Tab] 500 mg PO Q6H PRN 09/19/16 [History] Cetirizine HCl [Zyrtec] 10 mg PO HS 09/19/16 [History] Ezetimibe [Zetia] 10 mg PO HS 09/19/16 [History] Fluticasone Nasal [place] [Flonase Nasal [place]] 2 spr EA NOSTRIL DAILY 09/19/16 [History] LORazepam [Ativan] 0.5 mg PO DAILY PRN 09/19/16 [History] Levothyroxine Sodium [Synthroid] 88 mcg PO QAM 08/11/17 [History] traMADol HCl [Ultram] 50 mg PO Q6H PRN #90 tab 08/14/17 [Rx] Diclofenac Sodium Gel [Voltaren Gel] 2 gm TOPICAL QID PRN 07/13/21 [History] Olopatadine HCl 1 applic BOTH EYES QAM 07/13/21 [History] Aspirin 325 mg PO BID #60 tab 07/25/21 [Rx] HYDROcodone/APAP 7.5-325MG [[place] 7.5-325] 1 - 2 tab PO Q6H PRN #32 tab 07/25/21 [Rx] Ondansetron Odt [Zofran Odt] 1 tab PO Q8HR PRN #10 tab 07/25/21 [Rx] Sennosides [Senokot] 2 tab PO DAILY PRN #60 tablet 07/25/21 [Rx] Follow up Appointment(s)/Referral(s): Leopoldo Horowitz DO [Doctor of Osteopathic Medicine] - 2 Weeks Activity/Diet/Wound Care/Special Instructions: Weightbearing as tolerated with a walker. CPM 5-6h daily as tolerated. Leave dressing intact. Dressing may be removed by home care nurse or by patient in 7 days. Then change dressing twice daily until follow up. May shower with initial dressing intact and after removal. If dressing become saturated, please remove. Recommend use of compression stockings daily until follow up to help prevent swelling and blood clots. May remove at night before sleeping. Please take aspirin 325mg twice daily for 30 days to prevent blood clots. Please follow up with [facility] and call with any questions or concerns, . Discharge Disposition: HOME WITH HOME HEALTH SERVICES
--- NOTE | 2021-07-26 16:31 | P.PN ---
Progress Note - Text Progress Note Date: 07/26/21 - Chief Complaint Left knee pain This is a very pleasant 66-year-old patient who follows with Dr. Solano. Patient had a prior left total knee arthroplasty. Started having more symptoms with pain with ambulation. Failed conservative management. Has been using a walker. In today's admin: Left total knee arthroplasty. Postprocedure having some nausea. A bit tired. No chest pain or shortness of breath. Hypothyroid, anxiety disorder, hyperlipidemia, seasonal ALLERGIES, interstitial cystitis. July 26: Doing better. Did walk with therapy. Pain control. No nausea vomiting. Did tolerate her breakfast. Review of systems: Was done for constitutional, cardiovascular, GI, pulmonary. relevant finding as above Current medications reviewed in today's electronic records Past medical history to include: Hyperlipidemia, osteoarthritis, hypothyroid, interstitial cystitis, anxiety disorder, seasonal ALLERGIES Social history: Does not smoke or drink alcohol. Son lives with her. Does use a cane Family history: DVT Physical examination: VITAL SIGNS: 98.8, 70, 16, 1 12 x 65, 99% room air GENERAL: Sitting up in a chair, comfortable EYES: Pupils equal. Conjunctiva normal. HEENT: External appearance of nose and ears normal, oral cavity grossly normal. NECK: JVD not raised; masses not palpable. HEART: First and second heart sounds are normal; no edema. LUNGS: Respiratory rate normal; clear to auscultation. ABDOMEN: Soft, nontender, liver spleen not palpable, no masses palpable. PSYCH: [Alert and oriented x3; mood and affect slightly anxious l. MUSCULAR skeletal: Evidence of OA. Dressing over the left knee INVESTIGATIONS, reviewed in the clinical context: July 26: White count 6.7 hemoglobin 10.6 Coronavirus [PCR]: Not detected [July 04] White count 4.9 hemoglobin 12.2 platelets 282 sodium 136 potassium 4.2 creatinine 0.61 TSH 6.2 Assessment and plan: -Left total knee arthroplasty/revision Aspirin 325 mg by mouth twice a day for DVT prophylaxis. [place] for pain control -Anxiety disorder not otherwise specified Ativan 0.5 mg daily when necessary -Acute postprocedure blood loss anemia suspected from surgery Add ferrous sulfate -Hypothyroid Synthroid 88 g a day -Hyperlipidemia As indicated 10 mg daily at bedtime -Seasonal ALLERGIES Zyrtec 10 mg daily at bedtime -Acute nausea vomiting likely secondary to anesthesia: Bed to Zofran when necessary Doing better. Add ferrous sulfate. Care was discussed with the patient. Follow-up with PCP upon discharge. Thank you Dr. Horowitz
== END 2021-07-26 13:24 | disposition home health service (06) ==
LOC: OR 07:33 → 5NMEDONC 11:27 → OR 07-26 13:24
PROVIDERS: ATTEND Orthopaedic Surgery
DX: T84.093A Other mechanical complication of internal left knee prosthesis, initial encounter (principal); M19.90 Unspecified osteoarthritis, unspecified site; Y83.8 Other surgical procedures as the cause of abnormal reaction of the patient, or of later complication, without mention of misadventure at the time of the procedure; E03.9 Hypothyroidism, unspecified; E78.5 Hyperlipidemia, unspecified; Z79.899 Other long term (current) drug therapy; Z88.5 Allergy status to narcotic agent; Z88.0 Allergy status to penicillin; Z20.822 Contact with and (suspected) exposure to COVID-19
CPT/HCPCS: 97162; 64999; 64448; 76942; 85025; 87635; 73560; 27486; C1713; C1776; J2250; J1200; J0690 ×3; J2405; J3010; J2795 ×2; J2704; J1170 ×2